=== PATIENT | female | born 1960 | race African-American/Black ===

== ENCOUNTER 2016-06-14 15:12 | Emergency (ER) | payer MEDICAID ==
[~2016-06-14] VITALS: Ht 162.6 cm; Wt 53.1 kg
[~2016-06-14 15:12] MED LIST: AMOXICILLIN500 MG ORAL; CYCLOBENZAPRINE10 MG ORAL; DIPHENOXYLATE-1 EACH PO; DULERA 100 MCG/13 GM INH; GABAPENTIN300 MG ORAL; GUAIFENESIN1200 MG PO; KEFLEX500 MG ORAL; METHOCARBAMOL750 MG ORAL; NORCO 5-325 TA1 EAC1 ORAL; OMEPRAZOLE20 M3 ORAL; PREDNISONE20 MG ORAL; PROMETHAZINE-C118 M1 ORAL; ROBAXIN500 MG PO; SULINDAC200 MG PO; TRAMADOL HCL50 MG ORAL; TYLENOL WITH C1 EACH ORAL; VENTOLIN HFA18 GM INH
[2016-06-14 15:40] VITALS: BP 105/78
[2016-06-14] MEDS ORDERED: NORCO 5-325 TA1 EACH ORAL (15:55)
[2016-06-14] MEDS ORDERED: Norco 5mg/325mg tab ORAL ONE (16:00)
[2016-06-14 16:11] VITALS: BP 105/78
--- NOTE | 2016-06-14 21:00 | Emergency Room Report ---
History of Present Illness General Chief Complaint: Pain Source: Patient Present Illness HPI 55-year-old female presents ED complaining of left arm pain. Patient states she has history of rotator cuff tear in the left shoulder. Patient states she requires surgery but currently is having her fibromyalgia being managed. Not cleared for surgery at this time. Pain is a 10 out of 10, sharp, radiating down the left arm. States that most pain medications do not help her. No other aggravating or relieving factors. Denies any other associated symptom Allergies: Coded Allergies: ASPIRIN (Verified Allergy, Unknown, 02/18/15) Patient History Past Medical History: other - fibromyalgia Past Surgical History: none Pertinent Family History: none Social History: Denies: alcohol use, drug use, smoking Now: No Immunizations: UTD Reviewed Nursing Documentation: PMH: Agreed, PSxH: Agreed Nursing Documentation-PMH Hx Cardiac Problems: No - arthritis , Hx Asthma: Yes - bronchitis Hx Gastrointestinal Problems: Yes - IBS,gerd Review of Systems All Other Systems: negative except mentioned in HPI Physical Exam Vital Signs Date Time Temp Pulse Resp B/P Pulse Ox O2 Delivery O2 Flow Rate FiO2 06/14/16 15:20 97.3 81 17 130/45 97 Room Air Sp02 EP Interpretation: reviewed, normal General Appearance: no apparent distress, alert, GCS 15, non-toxic Head: normocephalic Eyes: bilateral eye PERRL, bilateral eye normal inspection ENT: normal ENT inspection Neck: normal inspection Respiratory: chest non-tender, lungs clear, normal breath sounds, speaking full sentences Cardiovascular #1: regular rate, rhythm, no edema Gastrointestinal: normal inspection Rectal: deferred Genitourinary: no CVA tenderness Musculoskeletal: other - limited abduction L shoulder, tender - L shoulder Neurologic: alert, oriented x3, responsive, motor strength/tone normal, sensory intact, speech normal Psychiatric: normal inspection Skin: normal inspection Lymphatic: normal inspection Medical Decision Making Diagnostic Impression: Primary Impression: Shoulder pain Qualified Codes: M25.512 - Pain in left shoulder Additional Impression: Chronic pain Qualified Codes: G89.29 - Other chronic pain ER Course Hospital Course 55-year-old female presents to ED complaining of left shoulder pain. no recent trauma Differential diagnoses include: Fracture, dislocation, sprain, contusion, bursitis Clinical course Patient placed on stretcher. After initial history, physical exam reveals an middle-aged female in no acute distress. There is some tenderness to the left shoulder, limited active abduction noted. No deformity. Sensations intact I reviewed CURES and patient did not have a history of extensive narcotic prescriptions. I agreed to provide patient with short course of [place] Diagnosis - shoulder pain, chronic pain stable and discharged to home with prescription for [place]. Followup with PMD. Return to ED if symptoms recur or worsen Last Vital Signs Date Time Temp Pulse Resp B/P Pulse Ox O2 Delivery O2 Flow Rate FiO2 06/14/16 15:40 97.7 77 18 105/78 99 Room Air Status: improved Disposition: HOME, SELF-CARE Condition: Stable Scripts Hydrocodone Bit/Acetaminophen 5-325* (NORCO 5-325*) 1 Each Tablet 1 TAB ORAL Q6H Y for For Pain, #10 TAB 0 Refills Prov: KB CLAYTON M.D. 06/14/16 Referrals: [facility],REFERRING (PCP) Patient Instructions: Rotator Cuff Tendinitis KB CLAYTON M.D. Jun 14, 2016 21:00
== END 2016-06-14 16:11 | disposition home or self-care (01) ==
LOC: EMR 15:50
DX: M25.512 Pain in left shoulder (principal); G89.29 Other chronic pain; Z88.6 Allergy status to analgesic agent; Z87.09 Personal history of other diseases of the respiratory system; Z87.19 Personal history of other diseases of the digestive system
CPT/HCPCS: 99283

== ENCOUNTER 2018-11-11 16:10 | Emergency (ER) | payer MEDICAID ==
[~2018-11-11] VITALS: Ht 162.6 cm; Wt 55.8 kg
[~2018-11-11 16:10] MED LIST changes: +NORCO 5-325 TA1 EACH ORAL
[2018-11-11 16:20] VITALS: BP 125/77
--- NOTE | 2018-11-11 16:34 | NUR ---
ED Nurse Note: Pt started to experience toothache, L neck and L earache pain since last night. Pain 10/10 ottoniel. HR 119, PA aware. Pt reported she were expecting to have tooth extraction procedure. Aox4, other VSS. Will cont to monitor.
--- NOTE | 2018-11-11 17:11 | Emergency Room Report ---
History of Present Illness General Chief Complaint: Pain Source: Patient Present Illness HPI 58 YO female presents to the ED C/O 02/12 pain in a previously fractured lower left tooth. pt. with poor dentition and loss of multiple teeth. Pt. reports no dental insurance and needs tooth pulled. pt. reports previous root canal performed. Denies fevers or chills. reports pain travels from tooth back towards the left ear. Denies trauma or fall. She denies tenderness or swelling in the gum line. reports hx of xerostomia. No relieving factors at this time. pt. has been taking Motrin with no relief of her pain. pain of tooth is exacerbated with eating or touching the affected tooth. Denies swollen tender lymph nodes. Denies Sore throat. Allergies: Coded Allergies: ASPIRIN (Verified Allergy, Unknown, 02/18/15) Patient History Past Medical History: see triage record Past Surgical History: none Pertinent Family History: none Now: No Reviewed Nursing Documentation: PMH: Agreed; PSxH: Agreed Nursing Documentation-PMH Past Medical History: No History, Except For Hx Cardiac Problems: No - arthritis , Hx Asthma: Yes - bronchitis Hx Gastrointestinal Problems: Yes - IBS,gerd Review of Systems All Other Systems: negative except mentioned in HPI Physical Exam Vital Signs Date Time Temp Pulse Resp B/P (MAP) Pulse Ox O2 Delivery O2 Flow Rate FiO2 11/11/18 16:20 99.0 119 20 125/77 (93) 96 Room Air Sp02 EP Interpretation: reviewed, normal General Appearance: no apparent distress, alert, GCS 15, non-toxic Head: normocephalic, atraumatic Eyes: bilateral eye normal inspection, bilateral eye PERRL ENT: hearing grossly normal, normal pharynx, normal voice, TMs + canals normal , moist mucus membranes, other - tooth fracture and pericoronitis of tooth # 34. tenderness to percussion, no palpable fluctuance of the gum line. Neck: full range of motion Respiratory: lungs clear, normal breath sounds, speaking full sentences Cardiovascular #1: regular rate, rhythm Musculoskeletal: back normal, gait/station normal, normal range of motion, non- tender Neurologic: alert, oriented x3, responsive, motor strength/tone normal, sensory intact, normal gait, speech normal, grossly normal Psychiatric: judgement/insight normal Lymphatic: no adenopathy Medical Decision Making PA Attestation Dr. Downs is my supervising Physician whom patient management has been discussed with. Diagnostic Impression: Primary Impression: Periodontitis due to fracture of root of tooth ER Course 58 YO female presents to the ED C/O 02/12 pain in a previously fractured lower left tooth. pt. with poor dentition and loss of multiple teeth. Pt. reports no dental insurance and needs tooth pulled. pt. reports previous root canal performed. Denies fevers or chills. reports pain travels from tooth back towards the left ear. Denies trauma or fall. She denies tenderness or swelling in the gum line. reports hx of xerostomia. No relieving factors at this time. pt. has been taking Motrin with no relief of her pain. pain of tooth is exacerbated with eating or touching the affected tooth. Denies swollen tender lymph nodes. Denies Sore throat. Ddx considered but are not limited to cellulitis, dental abscess, orbital cellulitis, d/l tooth, dental pain. trigeminal neuralgia Vital signs: are WNL, pt. is afebrile H&PE are most consistent with tooth fracture and pericoronitis of tooth # 34. ORDERS: none required at this time, the diagnosis is clinical ED INTERVENTIONS: Tylenol # 3 PO DISCHARGE: At this time pt. is stable for d/c to home. Will provide printed patient care instructions, and any necessary prescriptions. Care plan and follow up instructions have been discussed with the patient prior to discharge. Last Vital Signs Date Time Temp Pulse Resp B/P (MAP) Pulse Ox O2 Delivery O2 Flow Rate FiO2 11/11/18 16:20 99.0 119 20 125/77 (93) 96 Room Air Disposition: HOME, SELF-CARE Condition: Stable Scripts Acetaminophen With Codeine (T#3) (TYLENOL #3 TAB*) Y Tab 1 TAB ORAL Q8HR PRN for For Pain, #6 TAB Prov: Stehpany Ugalde 11/11/18 Amoxicillin* (AMOXIL*) 500 Mg Capsule 500 MG ORAL EVERY 8 HOURS for 7 Days, #21 CAP Prov: Stephany Ugalde 11/11/18 Referrals: [facility] Patient Instructions: Dental Pain Additional Instructions: Take medications as directed. Follow up with a Dentist in 3-5 days, even if your symptoms have resolved. * * --Please review list of Dental clinics, if you do not already have a Dentist Return sooner to ED if new symptoms occur, or current symptoms become worse. Do not drink alcohol, drive, or operate heavy machinery while taking Tylenol # 3 as this may cause drowsiness. - Please note that this Emergency Department Report was dictated using [employer] folding machine operator technology software, occasionally this can lead to erroneous entry secondary to interpretation by the dictation equipment. Stephany Ugalde Nov 11, 2018 17:11
[2018-11-11] MEDS ORDERED: Tylenol #3 tab (300mg/30mg) ORAL ONE (17:15)
[2018-11-11] MEDS ORDERED: AMOXICILLIN500 MG ORAL (17:17)
[2018-11-11] MEDS ORDERED: ACETAMINOPHEN-1 EAC1 ORAL (17:17)
[2018-11-11 17:22] VITALS: BP 135/76
--- NOTE | 2018-11-11 17:22 | NUR ---
ER DISCHARGE NOTE: Patient is cleared to be discharged per PA, pt is aox4, on room air, with stable vital signs. pt was given dc and prescription instructions, pt was able to verbalize understanding, pt id band removed without complications. pt is able to ambulate with steady gait. pt took all belongings.
== END 2018-11-11 17:22 | disposition home or self-care (01) ==
LOC: EMR 17:01
DX: K29.80 Duodenitis without bleeding (principal); Z88.6 Allergy status to analgesic agent; M19.90 Unspecified osteoarthritis, unspecified site; K21.9 Gastro-esophageal reflux disease without esophagitis
CPT/HCPCS: 99282

== ENCOUNTER 2019-07-10 15:21 | Emergency (ER) | payer MEDICAID ==
[~2019-07-10] VITALS: Ht 162.6 cm; Wt 54.4 kg
[~2019-07-10 15:21] MED LIST changes: +ACETAMINOPHEN-1 EAC1 ORAL
--- NOTE | 2019-07-10 15:44 | Emergency Room Report ---
History of Present Illness General Chief Complaint: Upper Respiratory Illness Source: Patient, Family Member Present Illness HPI The patient presents with 2 days of worsening chest pain, cough, wheezes and shortness of breath with total body pain. She was exposed to family member that has influenza. Cough has been nonproductive. She is felt chills but no documented fever. She has a history of fibromyalgia and has total body pain at this time however in addition to that she also has headache, chest pain is somewhat pleuritic. She is not taking any medication for the pain recently. She does have an albuterol inhaler. She has been hearing herself wheezing. She is used this on occasion. She rates the pain in her chest and body is 8/ 10. Is aching in nonradiating. It is constant and somewhat pleuritic. Patient has chronic hip pain and back pain. She walks with a limp. No palpitations, nausea, vomiting, diarrhea, dysuria, abdominal pain, rashes, depression, anxiety, visual changes, dizziness, headache. Allergies: Coded Allergies: ASPIRIN (Verified Allergy, Unknown, 02/18/15) Patient History Past Medical History: see triage record Social History: Reports: smoking Social History Narrative With daughter Now: No Reviewed Nursing Documentation: PMH: Agreed; PSxH: Agreed Nursing Documentation-PMH Hx Cardiac Problems: No - arthritis , Hx Asthma: Yes - bronchitis Hx Gastrointestinal Problems: Yes - IBS,gerd Review of Systems All Other Systems: negative except mentioned in HPI Physical Exam Vital Signs Date Time Temp Pulse Resp B/P (MAP) Pulse Ox O2 Delivery O2 Flow Rate FiO2 07/10/19 15:24 98.4 82 18 143/95 (111) 99 Room Air Sp02 EP Interpretation: reviewed, normal General Appearance: well appearing, GCS 15, mild distress - Anxious and stating chest pain and shortness of breath Head: normocephalic Eyes: bilateral eye normal inspection, bilateral eye PERRL, bilateral eye EOMI ENT: normal pharynx, moist mucus membranes Neck: full range of motion, supple Respiratory: lungs clear, normal breath sounds, other - Some chest wall tenderness Cardiovascular #1: regular rate, rhythm, no edema Cardiovascular #2: 2+ radial (R) Gastrointestinal: normal inspection, normal bowel sounds, non tender, no mass, non-distended Genitourinary: no CVA tenderness Musculoskeletal: back normal, normal range of motion, other - Walks with a limp Neurologic: alert, oriented x3, grossly normal Psychiatric: anxious Skin: no rash, warm/dry Medical Decision Making Diagnostic Impression: Primary Impression: Viral upper respiratory infection Additional Impression: Bronchospasm ER Course Patient presents with 2 days of worsening cough, shortness of breath, wheezing and chest pain. Differential includes influenza, exacerbation of asthma, exacerbation fibromyalgia, acute myocardial infarction, electrolyte abnormalities amongst others. Evaluation with EKG, chest x-ray and labs including influenza swab. Treatment with IV hydration, Reglan and Benadryl initially. Concern about exposure to influenza. Clinical exam is against pulmonary embolus. EKG sinus rhythm with right atrial enlargement nonspecific ST-T wave changes with infero-lateral ST depression minimally. P pulmonale is present rate 96. Chest x-ray no infiltrates. Labs with low white count. No left shift. CMP with elevated CPK. Urinalysis negative. Influenza negative. Patient sleeping after treatment. Anxiety and distress is resolved. Discussed findings and treatment plan with patient and daughter. No medical emergency at this time and great improvement in pain and distress. Patient stable for outpatient observation and treatment. Laboratory Tests Test 07/10/19 15:50 07/10/19 16:20 White Blood Count 3.9 K/UL (4.8-10.8) L Red Blood Count 4.79 M/UL (4.20-5.40) Hemoglobin 14.2 G/DL (12.0-16.0) Hematocrit 42.6 % (37.0-47.0) Mean Corpuscular Volume 89 FL (80-99) Mean Corpuscular Hemoglobin 29.6 PG (27.0-31.0) Mean Corpuscular Hemoglobin Concent 33.3 G/DL (32.0-36.0) Red Cell Distribution Width 12.6 % (11.6-14.8) Platelet Count 240 K/UL (150-450) Mean Platelet Volume 6.6 FL (6.5-10.1) Neutrophils (%) (Auto) 62.9 % (45.0-75.0) Lymphocytes (%) (Auto) 17.4 % (20.0-45.0) L Monocytes (%) (Auto) 16.6 % (1.0-10.0) H Eosinophils (%) (Auto) 1.0 % (0.0-3.0) Basophils (%) (Auto) 2.2 % (0.0-2.0) H Prothrombin Time 9.8 SEC (9.30-11.50) Prothrombin Time INR 0.9 (0.9-1.1) Activated Partial Thromboplast Time 31 SEC (23-33) Sodium Level 142 MMOL/L (136-145) Potassium Level 3.5 MMOL/L (3.5-5.1) Chloride Level 104 MMOL/L (98-107) Carbon Dioxide Level 22 MMOL/L (21-32) Anion Gap 16 mmol/L (5-15) H Blood Urea Nitrogen 13 mg/dL (7-18) Creatinine 1.2 MG/DL (0.55-1.30) Estimate Glomerular Filtration Rate 56.0 mL/min (>60) Glucose Level 95 MG/DL (74-106) Calcium Level 8.9 MG/DL (8.5-10.1) Total Bilirubin 0.3 MG/DL (0.2-1.0) Aspartate Amino Transferase (AST) 18 U/L (15-37) Alanine Aminotransferase (ALT) 26 U/L (12-78) Alkaline Phosphatase 77 U/L (46-116) Total Creatine Kinase 360 U/L (26-308) H Troponin I 0.000 ng/mL (0.000-0.056) Pro-B-Type Natriuretic Peptide 52 pg/mL (0-125) Total Protein 7.2 G/DL (6.4-8.2) Albumin 3.7 G/DL (3.4-5.0) Globulin 3.5 g/dL Albumin/Globulin Ratio 1.1 (1.0-2.7) Urine Color Pale yellow Urine Appearance Clear Urine pH 6.5 (4.5-8.0) Urine Specific [place] 1.005 (1.005-1.035) Urine Protein Negative (NEGATIVE) Urine Glucose (UA) Negative (NEGATIVE) Urine Ketones Negative (NEGATIVE) Urine Blood 4+ (NEGATIVE) H Urine Nitrite Negative (NEGATIVE) Urine Bilirubin Negative (NEGATIVE) Urine Urobilinogen Normal MG/DL (0.0-1.0) Urine Leukocyte Esterase Negative (NEGATIVE) Urine RBC 15-20 /HPF (0 - 2) H Urine WBC 0-2 /HPF (0 - 2) Urine Squamous Epithelial Cells Few /LPF (NONE/OCC) Urine Bacteria None /HPF (NONE) Urine Opiates Screen Negative (NEGATIVE) Urine Barbiturates Screen Negative (NEGATIVE) Phencyclidine (PCP) Screen Negative (NEGATIVE) Urine Amphetamines Screen Negative (NEGATIVE) Urine Benzodiazepines Screen Negative (NEGATIVE) Urine Cocaine Screen Negative (NEGATIVE) Urine Marijuana (THC) Screen Negative (NEGATIVE) Microbiology Date/Time Source Procedure Growth Status 07/10/19 15:40 Nose - Final Complete 07/10/19 15:40 Nose - Final Complete EKG Diagnostic Results Rate: normal Rhythm: NSR ST Segments: no acute changes - Right atrial enlargement nonspecific ST-T wave changes Rhythm Strip Diag. Results EP Interpretation: yes Rhythm: NSR, no PVC's, no ectopy Chest X-Ray Diagnostic Results Chest X-Ray Diagnostic Results : Chest X-Ray Ordered: Yes # of Views/Limited/Complete: 1 View Indication: Other Interpretation: no consolidation, no effusion, no pneumothorax Impression: No acute disease Electronically Signed by: Electronically signed by Kurtis Butcher MD Last Vital Signs Date Time Temp Pulse Resp B/P (MAP) Pulse Ox O2 Delivery O2 Flow Rate FiO2 07/10/19 16:00 82 18 Room Air 07/10/19 16:00 98.4 143/95 99 Status: improved Disposition: HOME, SELF-CARE Condition: Improved Scripts Acetaminophen (Tylenol) 325 Mg Tablet 650 MG ORAL Q6H PRN for Prn Pain/Headache/Temp > 101, #20 TAB 0 Refills Prov: Kurtis Butcher MD 07/10/19 Promethazine HCl/Codeine (Prometh-Codein 6.25-10 mg/5 ml) 5 Ml Syrup 5 ML PO Q6HR PRN for For Cough, #90 ML Prov: Kurtis Butcher MD 07/10/19 Prednisone* (PREDNISONE*) 20 Mg Tablet 40 MG ORAL DAILY, #10 TAB Prov: Kurtis Butcher MD 07/10/19 Kurtis Butcher MD Jul 10, 2019 15:44
[2019-07-10] MEDS ORDERED: DiphenhydrAMINE 50mg/ml Inj IVP ONE (15:45)
[2019-07-10] MEDS ORDERED: Metoclopramide 10mg/2ml Inj IVP ONE (15:45)
[2019-07-10 16:00] VITALS: BP 143/95
--- NOTE | 2019-07-10 16:00 | NUR ---
ED Nurse Note: Patient walked into ED from home c/o shortness of breath since last night and chronic generalized body pain. Patient AxO x 4, on the hall monitor. bed in lowest postion. 20 g IV started in right AC. Blood drawn and sent to lab.
[2019-07-10 16:20] LABS: ANION GAP 16 mmol/L (5-15); BLOOD UREA NITROGEN 13 mg/dL (7-18); CALCIUM 8.9 MG/DL (8.5-10.1); CARBON DIOXIDE 22 MMOL/L (21-32); CHLORIDE 104 MMOL/L (98-107); CREATININE 1.2 MG/DL (0.55-1.30); POTASSIUM 3.5 MMOL/L (3.5-5.1); SODIUM 142 MMOL/L (136-145)
[2019-07-10 16:22] LABS: BASOPHILS % (AUTO) 2.2 % (0.0-2.0); HEMATOCRIT 42.6 % (37.0-47.0); HEMOGLOBIN 14.2 G/DL (12.0-16.0); LYMPHOCYTES % (AUTO) 17.4 % (20.0-45.0); MEAN CORPUSCULAR VOLUME 89 FL (80-99); MONOCYTES % (AUTO) 16.6 % (1.0-10.0); NEUTROPHILS % (AUTO) 62.9 % (45.0-75.0); PLATELET COUNT 240 K/UL (150-450); RED BLOOD COUNT 4.79 M/UL (4.20-5.40); RED CELL DISTRIBUTION WIDTH 12.6 % (11.6-14.8); WHITE BLOOD COUNT 3.9 K/UL (4.8-10.8)
[2019-07-10 16:24] LABS: INR 0.9 (0.9-1.1)
--- NOTE | 2019-07-10 16:29 | NUR ---
ED Nurse Note: Urine sent to lab
[2019-07-10 16:30] LABS: ALANINE AMINOTRANSFERASE 26 U/L (12-78); ALBUMIN 3.7 G/DL (3.4-5.0); ALBUMIN/GLOBULIN RATIO 1.1 (1.0-2.7); ALKALINE PHOSPHATASE 77 U/L (46-116); ASPARTATE AMINO TRANSFERASE 18 U/L (15-37); BILIRUBIN,TOTAL 0.3 MG/DL (0.2-1.0); CREATINE KINASE 360 U/L (26-308)
--- NOTE | 2019-07-10 16:36 | Diagnostic Imaging Report ---
Indication: Chest pain Technique: One view of the chest Comparison: none Findings: Lungs and pleural spaces are clear. Heart size is normal. Impression: No acute process
[2019-07-10 16:44] LABS: APPEARANCE,URINE CLEAR; BILIRUBIN, URINE NEGATIVE (NEGATIVE); COLOR,URINE PALE YELLOW; GLUCOSE, URINE (UA) NEGATIVE (NEGATIVE); KETONES,URINE NEGATIVE (NEGATIVE); LEUKOCYTE ESTERASE ,URINE NEGATIVE (NEGATIVE); NITRITE,URINE NEGATIVE (NEGATIVE); PH,URINE 6.5 (4.5-8.0); PROTEIN,URINE NEGATIVE (NEGATIVE); UROBILINOGEN,URINE NORMAL MG/DL (0.0-1.0)
[2019-07-10] MEDS ORDERED: TYLENOL325 MG ORAL (18:07)
[2019-07-10] MEDS ORDERED: PREDNISONE20 MG ORAL (18:07)
[2019-07-10] MEDS ORDERED: PROMETH-CODEIN 65 ML PO (18:07)
== END 2019-07-10 16:20 | disposition home or self-care (01) ==
LOC: EMR 15:54
DX: J06.9 Acute upper respiratory infection, unspecified (principal); B97.89 Other viral agents as the cause of diseases classified elsewhere; J98.01 Acute bronchospasm; K21.9 Gastro-esophageal reflux disease without esophagitis; F17.200 Nicotine dependence, unspecified, uncomplicated; Z88.6 Allergy status to analgesic agent
CPT/HCPCS: 36415; 71045; 80053; 80307; 81003; 82550; 83880; 84484; 85025; 85610; 85730; 86710; 93005; 96361; 96374; 96375; J1200; J2765; J7030; J7512; Z7502; 99284

== ENCOUNTER 2020-01-01 13:43 | Emergency (ER) | payer MEDICAID ==
[~2020-01-01] VITALS: Ht 162.6 cm; Wt 59.0 kg
[~2020-01-01 13:43] MED LIST changes: +PROMETH-CODEIN 65 ML PO; +TYLENOL325 MG ORAL
[2020-01-01] MEDS ORDERED: VENLAFAXINE H37.5 M1 ORAL (13:53)
[2020-01-01 13:57] VITALS: BP 109/69
[2020-01-01] MEDS ORDERED: Omnipaque-300 100ml vial INJ PRN (14:15)
[2020-01-01 14:24] LABS: BASOPHILS % (AUTO) 2.8 % (0.0-2.0); EOSINOPHILS % (AUTO) 0.4 % (0.0-3.0); HEMATOCRIT 46.2 % (37.0-47.0); HEMOGLOBIN 15.3 G/DL (12.0-16.0); MEAN CORPUSCULAR VOLUME 88 FL (80-99); NEUTROPHILS % (AUTO) 69.8 % (45.0-75.0); PLATELET COUNT 338 K/UL (150-450); RED BLOOD COUNT 5.22 M/UL (4.20-5.40); RED CELL DISTRIBUTION WIDTH 11.4 % (11.6-14.8); WHITE BLOOD COUNT 7.5 K/UL (4.8-10.8)
[2020-01-01 14:46] LABS: ANION GAP 10 mmol/L (5-15); BLOOD UREA NITROGEN 14 mg/dL (7-18); CALCIUM 9.6 MG/DL (8.5-10.1); CARBON DIOXIDE 28 MMOL/L (21-32); CHLORIDE 104 MMOL/L (98-107); CREATININE 1.3 MG/DL (0.55-1.30); POTASSIUM 3.9 MMOL/L (3.5-5.1); SODIUM 141 MMOL/L (136-145)
[2020-01-01 14:51] LABS: ALANINE AMINOTRANSFERASE 20 U/L (12-78); ALBUMIN 3.9 G/DL (3.4-5.0); ALKALINE PHOSPHATASE 86 U/L (46-116); ASPARTATE AMINO TRANSFERASE 18 U/L (15-37); BILIRUBIN,TOTAL 0.4 MG/DL (0.2-1.0)
[2020-01-01 15:23] LABS: APPEARANCE,URINE CLEAR; BILIRUBIN, URINE NEGATIVE (NEGATIVE); COLOR,URINE PALE YELLOW; GLUCOSE, URINE (UA) NEGATIVE (NEGATIVE); KETONES,URINE NEGATIVE (NEGATIVE); LEUKOCYTE ESTERASE ,URINE 1+ (NEGATIVE); NITRITE,URINE NEGATIVE (NEGATIVE); PH,URINE 6 (4.5-8.0); PROTEIN,URINE NEGATIVE (NEGATIVE); UROBILINOGEN,URINE NORMAL MG/DL (0.0-1.0)
--- NOTE | 2020-01-01 15:40 | Diagnostic Imaging Report ---
Indication: Left ear infection and numbness, left lower jaw pain Technique: IV administration nonionic contrast. Spiral acquisitions obtained through the facial bones Multiplanar reconstructions were generated. Total dose length product 473 mGycm. CTDIvol(s) 11, 111, 15 mGy. Radiation dose was minimized using automated exposure control Comparison: none Findings: The included intracranial structures demonstrate an extra-axial high attenuation lesion with a peripheral calcification overlying the right frontal convexity. This measures 3 x 1.9 x 2.8 cm. There is minimal edema in the underlying white matter. No significant mass effect other than effacement of the adjacent CSF spaces. The left periauricular soft tissues appear unremarkable. No evidence of CVA soft tissue swelling or findings to suggest abscess. The external auditory canal, middle ear structures, and temporal bone are grossly unremarkable. Unremarkable appearing temporomandibular joint. No acute fractures. The sinuses are clear. The optic globes and retroseptal orbits are unremarkable. There is evidence of apical root abscesses involving the mandibular canine teeth bilaterally. There is evidence of multiple dental caries. The salivary glands are unremarkable. No upper cervical mass or adenopathy. The nasopharynx, oropharynx, and hypopharynx are unremarkable. Impression: Incidental finding of: 3 x 1.9 x 2.8 cm left frontal convexity region extra-axial lesion, appearance highly suggestive of a meningioma. Consider contrast MRI for further evaluation if this has not been worked up previously No findings relatable to stated clinical history of left ureter infection and numbness, left lower jaw pain. No evidence of significant inflammation or abscess. Fairly extensive dental disease, with evidence of multiple apical root abscesses and dental caries. The CT scanner at [facility] is accredited by the [employer] and the scans are performed using protocols designed to limit radiation exposure to as low as reasonably achievable to attain images of sufficient resolution adequate for diagnostic evaluation.
--- NOTE | 2020-01-01 15:47 | Emergency Room Report ---
History of Present Illness General Chief Complaint: General Complaint Source: Patient Present Illness HPI 59-year-old female with history of arthritis, neuropathy, anxiety, here complaining of 2 weeks of left-sided teeth pain that is now radiating to left ear pain and having a sharp 10 out of 10 pain left ear. Denies any pus drainage. Denies any fever and chills, sore throat, loss of taste or smell. Denies any headache and dizziness. Reports that her doctor has told her not to take any ibuprofen due to low kidney function. However BUN/creatinine GFR within normal limits here. Denies any chest pain shortness of breath. Denies any cough and congestion. Denies any fall or trauma. Is not taking any blood thinners. Patient is neurovascularly intact. No slurred speech noted.Patient also mentions that she has a small tumor which she was notified about by primary doctor and will follow-up. Patient has not awoke during the tumor however when I mentioned to her that she has a meningioma she reported that she is already aware of it. 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 COVID-19 Screening: Negative COVID-19 COVID-19 Testing Source: dtla Patient History Past Medical History: see triage record Past Surgical History: none Pertinent Family History: none Last Menstrual Period: none Now: No Immunizations: UTD Reviewed Nursing Documentation: PMH: Agreed; PSxH: Agreed Nursing Documentation-PMH Past Medical History: No History, Except For Hx Cardiac Problems: No - arthritis , Hx Asthma: Yes - bronchitis Hx COPD: Yes Hx Gastrointestinal Problems: Yes - IBS,gerd Review of Systems All Other Systems: negative except mentioned in HPI Physical Exam Vital Signs Date Time Temp Pulse Resp B/P (MAP) Pulse Ox O2 Delivery O2 Flow Rate FiO2 01/01/20 13:46 97.0 117 22 109/69 (82) 96 Room Air Sp02 EP Interpretation: reviewed, normal General Appearance: no apparent distress, alert, GCS 15, non-toxic Head: normocephalic, atraumatic Eyes: bilateral eye normal inspection, bilateral eye PERRL ENT: hearing grossly normal, normal pharynx, no angioedema, normal voice, other - Erythema left TM Neck: full range of motion, supple/symm/no masses Respiratory: chest non-tender, lungs clear, normal breath sounds, no rhonchi, speaking full sentences Cardiovascular #1: regular rate, rhythm, no edema Cardiovascular #2: 2+ carotid (R), 2+ carotid (L) Gastrointestinal: normal bowel sounds, non tender, soft, non-distended, no guarding, no rebound Rectal: deferred Genitourinary: no CVA tenderness Musculoskeletal: swelling - Left mandible Neurologic: alert, motor strength/tone normal, oriented x3, sensory intact, responsive, speech normal Psychiatric: judgement/insight normal, memory normal, mood/affect normal, no suicidal/homicidal ideation Skin: no rash Lymphatic: no adenopathy Medical Decision Making PA Attestation All my diagnosis and treatment plans were reviewed ad discussed with my supervising physician Dr. Noble Diagnostic Impression: Primary Impression: Otitis media Additional Impression: Dental disease ER Course 59-year-old female with history of arthritis, neuropathy, anxiety, here complaining of 2 weeks of left-sided teeth pain that is now radiating to left ear pain and having a sharp 10 out of 10 pain left ear. Denies any pus drainage. Denies any fever and chills, sore throat, loss of taste or smell. Denies any headache and dizziness. Reports that her doctor has told her not to take any ibuprofen due to low kidney function. However BUN/creatinine GFR within normal limits here. Denies any chest pain shortness of breath. Denies any cough and congestion. Denies any fall or trauma. Is not taking any blood thinners. Patient is neurovascularly intact. No slurred speech noted. Patient also mentions that she has a small tumor which she was notified about by primary doctor and will follow-up. Patient has not awoke during the tumor however when I mentioned to her that she has a meningioma she reported that she is already aware of it. Ddx considered but are not limited to : Dental abscess, peritonsillar abscess, otitis media, Vital signs: are WNL, pt. is afebrile H&PE are most consistent with: Otitis media, chronic renal disease, meningioma ORDERS: CBC, CMP, UA, CT facial bone with contrast, Augmentin, Tylenol ED INTERVENTIONS: Refused any pain medication DISCHARGE: At this time pt. is stable for d/c to home. Will provide printed patient care instructions, and any necessary prescriptions. Care plan and follow up instructions have been discussed with the patient prior to discharge. Patient take medication as directed, follow primary care provider, follow-up with your dentist, also regarding the meningioma follow-up with primary doctor for referral to oncologist. If worsening symptoms return emergency CT/MRI/US Diagnostic Results CT/MRI/US Diagnostic Results : Imaging Test Ordered: CT facial bones with contrast Impression Meningioma noted, no abscess noted Last Vital Signs Date Time Temp Pulse Resp B/P (MAP) Pulse Ox O2 Delivery O2 Flow Rate FiO2 01/01/20 13:57 117 22 Room Air 01/01/20 13:57 97.0 109/69 96 Disposition: HOME, SELF-CARE Condition: Stable Scripts Acetaminophen* (ACETAMINOPHEN 325MG TABLET*) 325 Mg Tablet 650 MG ORAL Q6H PRN for Pain Scale (3-5), #30 TAB Prov: Chelsie Eller 01/01/20 Amoxicillin/Potassium Clav 875-125* (AUGMENTIN 875-125 TABLET*) 1 Each Tablet 1 TAB ORAL TWICE A DAY for 10 Days, #20 TAB Prov: Chelsie Eller 01/01/20 Referrals: [facility],REFERRING (PCP) Patient Instructions: Diet and Dental Disease, Otitis Media, Adult, Easy-to- Read Additional Instructions: Take medication as directed, follow-up with your primary care doctor and your dentist, if worsening symptoms return to the emergency room. Chelsie Eller Jan 01, 2020 15:47
[2020-01-01] MEDS ORDERED: AUGMENTIN 875-1 EAC1 ORAL (15:49)
[2020-01-01] MEDS ORDERED: ACETAMINOPHEN325 M1 ORAL (15:49)
[2020-01-01 15:50] VITALS: BP 115/79
== END 2020-01-01 16:00 | disposition home or self-care (01) ==
LOC: EMR 15:00
DX: H66.92 Otitis media, unspecified, left ear (principal); K02.9 Dental caries, unspecified; K21.9 Gastro-esophageal reflux disease without esophagitis; J44.9 Chronic obstructive pulmonary disease, unspecified; M19.90 Unspecified osteoarthritis, unspecified site; F41.9 Anxiety disorder, unspecified; G62.9 Polyneuropathy, unspecified; D32.9 Benign neoplasm of meninges, unspecified
CPT/HCPCS: 36415; 70488; 80053; 80307; 81003; 85025; Q9965; Z7502; 99284